=== PATIENT | female | born 1995 ===

== ENCOUNTER 2017-06-13 03:04 | Emergency (ER) | payer BC, MEDICAID ==
[2017-06-13 03:09] VITALS: TEMP 98
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
[2017-06-13 08:29] VITALS: BP 120/78; PULSE 78; RESP 19; O2SAT 98
== END 2017-06-13 08:29 | disposition home or self-care (01) ==
LOC: H.ER 03:04
DX: S09.90XA Unspecified injury of head, initial encounter (principal); Y04.0XXA Assault by unarmed brawl or fight, initial encounter; Y92.89 Other specified places as the place of occurrence of the external cause